=== PATIENT | female | born 1950 | race Caucasian/White ===

== ENCOUNTER → 2016-11-29 | Outpatient (REF) | payer MEDICARE, BC | LOC: M LAB REF 16:26 | PROVIDERS: ATTEND Physician Assistant | DX: R30.0 Dysuria (principal) ==

== ENCOUNTER → 2017-06-28 | Outpatient (REF) | payer MEDICARE, BC | LOC: M LAB REF 16:17 | PROVIDERS: ATTEND Physician Assistant | DX: R30.0 Dysuria (principal) ==

== ENCOUNTER → 2017-10-18 | Outpatient (CLI) | payer MEDICARE, BC ==
[2017-10-18 13:49] LABS: BASO % 0.8 % (0.0-1.0); EOS # 0.2 10^3/uL (0.0-0.50); EOS % 4.8 % (0.0-3.0); IMMATURE GRANULOCYTE % 0.3 % (0-0); LYMPH # 0.9 10^3/uL (1.5-4.5); LYMPH % 22.9 % (24.0-44.0); MEAN CORPUSCULAR HEMOGLOBIN 32.2 pg (27.0-33.0); MEAN CORPUSCULAR HGB CONC 32.4 g/dl (32.0-36.5); MEAN CORPUSCULAR VOLUME 99.2 fl (80.0-96.0); MONO # 0.3 10^3/uL (0.0-0.8); MONO % 8.5 % (0.0-5.0); NEUTROPHILS # 2.4 10^3/uL (1.8-7.7); NEUTROPHILS % 62.7 % (36.0-66.0); PLATELET COUNT, AUTOMATED 274 10^3/uL (150-450); RED CELL DISTRIBUTION WIDTH 12.4 % (11.5-14.5); WHITE BLOOD COUNT 3.8 10^3/uL (4.0-10.0)
[2017-10-18 14:56] LABS: ALBUMIN 3.9 GM/DL (3.2-5.2); ALKALINE PHOSPHATASE 60 U/L (45-117); ALT/SGPT 41 U/L (12-78); ANION GAP 7 MEQ/L (8-16); AST/SGOT 19 U/L (7-37); BILIRUBIN,TOTAL 0.3 MG/DL (0.2-1.0); BLOOD UREA NITROGEN 12 MG/DL (7-18); CALCIUM LEVEL 9.8 MG/DL (8.8-10.2); CARBON DIOXIDE LEVEL 33 MEQ/L (21-32); CHLORIDE LEVEL 101 MEQ/L (98-107); CREATININE FOR GFR 0.79 MG/DL (0.55-1.02); FREE T4 0.98 NG/DL (0.76-1.46); GLOMERULAR FILTRATION RATE > 60.0 (>45); GLUCOSE, FASTING 81 MG/DL (80-110); POTASSIUM SERUM 4.3 MEQ/L (3.5-5.1); SODIUM LEVEL 141 MEQ/L (136-145); TOTAL PROTEIN 6.9 GM/DL (6.4-8.2)
[2017-10-19 17:35] LABS: FOLATE 12.8 NG/ML; VITAMIN B12 LEVEL 363 PG/ML
== END ==
LOC: M SMT 10:55
PROVIDERS: ATTEND Family Medicine
DX: E55.9 Vitamin D deficiency, unspecified (principal); F33.1 Major depressive disorder, recurrent, moderate; G20 Parkinson's disease

== ENCOUNTER → 2018-02-12 | Outpatient (CLI) | payer MEDICARE, BC ==
[2018-02-12 18:17] LABS: BASO % 0.5 % (0.0-1.0); EOS # 0.1 10^3/uL (0.0-0.50); EOS % 2.6 % (0.0-3.0); HEMATOCRIT 39.7 % (36.0-47.0); HEMOGLOBIN 12.7 g/dl (12.0-16.0); IMMATURE GRANULOCYTE % 0.3 % (0-3.0); LYMPH # 0.7 10^3/uL (1.5-4.5); LYMPH % 18.4 % (24.0-44.0); MEAN CORPUSCULAR HEMOGLOBIN 32.2 pg (27.0-33.0); MEAN CORPUSCULAR VOLUME 100.5 fl (80.0-96.0); MONO # 0.3 10^3/uL (0.0-0.8); MONO % 8.4 % (0.0-5.0); NEUTROPHILS # 2.7 10^3/uL (1.8-7.7); NEUTROPHILS % 69.8 % (36.0-66.0); PLATELET COUNT, AUTOMATED 251 10^3/uL (150-450); RED BLOOD COUNT 3.95 10^6/uL (4.00-5.40); RED CELL DISTRIBUTION WIDTH 12.7 % (11.5-14.5); WHITE BLOOD COUNT 3.9 10^3/uL (4.0-10.0)
[2018-02-12 18:34] LABS: VITAMIN B12 LEVEL 1365 PG/ML (247-911)
== END ==
LOC: M SMT 10:26
DX: D51.9 Vitamin B12 deficiency anemia, unspecified (principal)
CPT/HCPCS: 82607

== ENCOUNTER → 2018-02-18 | Outpatient (REF) | payer MEDICARE, BC ==
[2018-02-18 10:55] LABS: APPEARANCE, URINE MANUAL CLEAR (CLEAR); COLOR, URINE MANUAL YELLOW (YELLOW); PROTEIN, URINE MANUAL NEGATIVE (NEGATIVE)
[2018-02-18 10:56] LABS: BACTERIA, URINE NONE SEEN; BILIRUBIN, URINE MANUAL NEGATIVE (NEGATIVE); BLOOD URINE MANUAL NEGATIVE (NEGATIVE); GLUCOSE, URINE (UA) MANUAL TRACE(50 MG/DL) mg/dL (NEGATIVE); KETONE, URINE MANUAL NEGATIVE (NEGATIVE); LEUKOCYTE ESTERASE, URINE MAN NEGATIVE (NEGATIVE); MICROSCOPIC INDICATED? MAN YES (NO); NITRITE, URINE MANUAL NEGATIVE (NEGATIVE); RBC, URINE NONE SEEN /hpf (0-3); SQUAMOUS EPITHELIAL CELL URINE SMALL AMOUNT /hpf (SMALL AMT); UROBILINOGEN, URINE MANUAL NORMAL (NORMAL); WBC, URINE 0-1 /hpf (0-3)
[2018-02-18 10:57] LABS: HYALINE CAST, URINE NONE SEEN /lpf (0-1); MICROSCOPIC EXAM PERFORMED
== END ==
LOC: M LAB REF 10:35
DX: R30.0 Dysuria (principal)
CPT/HCPCS: 81000

== ENCOUNTER → 2018-05-01 | Outpatient (REF) | payer MEDICARE, BC ==
[2018-05-01 14:24] LABS: APPEARANCE, URINE CLOUDY (CLEAR); BACTERIA, URINE AUTO 3+ (NEGATIVE); BILIRUBIN, URINE AUTO NEGATIVE (NEGATIVE); BLOOD, URINE BLOOD NEGATIVE (NEGATIVE); COLOR, URINE YELLOW (YELLOW); GLUCOSE, URINE (UA) AUTO NEGATIVE (NEGATIVE); KETONE, URINE AUTO NEGATIVE (NEGATIVE); LEUKOCYTE ESTERASE, URINE AUTO 2+ (NEGATIVE); MUCUS, URINE SMALL (NEGATIVE); NITRITE, URINE AUTO NEGATIVE (NEGATIVE); PROTEIN, URINE AUTO NEGATIVE (NEGATIVE); RBC, URINE AUTO 7 /HPF (0-3); SPECIFIC GRAVITY URINE AUTO 1.017 (1.002-1.035); SQUAMOUS EPITHELIAL CELL UR AU 4 /HPF (0-6); WBC, URINE AUTO 71 /HPF (0-3)
== END ==
LOC: M LAB REF 13:58
DX: R41.82 Altered mental status, unspecified (principal)
CPT/HCPCS: 81001

== ENCOUNTER → 2018-05-08 | Outpatient (CLI) | payer MEDICARE, BC | LOC: M SMT 11:06 | DX: K59.00 Constipation, unspecified (principal) | CPT/HCPCS: 74019 ==

== ENCOUNTER 2018-05-24 14:34 | Emergency (ER) | payer MEDICARE, BC ==
[2018-05-24] MEDS: NS 1,000 ML IV (16:50)
[2018-05-24 17:10] LABS: BASO % 0.7 % (0.0-1.0); EOS # 0.1 10^3/uL (0.0-0.50); EOS % 2.7 % (0.0-3.0); HEMATOCRIT 38.3 % (36.0-47.0); HEMOGLOBIN 12.4 g/dl (12.0-15.5); IMMATURE GRANULOCYTE % 0.5 % (0-3.0); LYMPH # 0.8 10^3/uL (1.5-4.5); LYMPH % 19.2 % (24.0-44.0); MEAN CORPUSCULAR HGB CONC 32.4 g/dl (32.0-36.5); MEAN CORPUSCULAR VOLUME 98.7 fl (80.0-96.0); MONO # 0.4 10^3/uL (0.0-0.8); NEUTROPHILS # 2.8 10^3/uL (1.8-7.7); NEUTROPHILS % 67.9 % (36.0-66.0); PLATELET COUNT, AUTOMATED 254 10^3/uL (150-450); RED BLOOD COUNT 3.88 10^6/uL (4.00-5.40); RED CELL DISTRIBUTION WIDTH 12.4 % (11.5-14.5); WHITE BLOOD COUNT 4.1 10^3/uL (4.0-10.0)
[2018-05-24 17:34] LABS: LACTIC ACID SEPSIS PROTOCOL 1.5 MMOL/L (0.4-2.0)
[2018-05-24 17:37] LABS: ALBUMIN 3.7 GM/DL (3.2-5.2); ALBUMIN/GLOBULIN RATIO 1.28 (1.00-1.93); ALKALINE PHOSPHATASE 65 U/L (45-117); ALT/SGPT 38 U/L (12-78); AMYLASE 240 U/L (25-115); ANION GAP 5 MEQ/L (8-16); AST/SGOT 22 U/L (7-37); BILIRUBIN,DIRECT < 0.1 MG/DL (0.0-0.2); BILIRUBIN,TOTAL 0.2 MG/DL (0.2-1.0); BLOOD UREA NITROGEN 14 MG/DL (7-18); CALCIUM LEVEL 9.2 MG/DL (8.8-10.2); CARBON DIOXIDE LEVEL 33 MEQ/L (21-32); CHLORIDE LEVEL 106 MEQ/L (98-107); CPK CREATINE PHOSPHOKINASE 76 U/L (26-192); CREATININE FOR GFR 0.85 MG/DL (0.55-1.30); GLOMERULAR FILTRATION RATE > 60.0 (>45); GLUCOSE, FASTING 97 MG/DL (70-100); LIPASE 1118 U/L (73-393); POTASSIUM SERUM 4.2 MEQ/L (3.5-5.1); SODIUM LEVEL 144 MEQ/L (136-145); TOTAL PROTEIN 6.6 GM/DL (6.4-8.2); TROPONIN I < 0.02 NG/ML (< 0.10)
[2018-05-24 17:43] LABS: CK-MB VALUE MASS 2.7 NG/ML (<3.6); MB/CK RELATIVE INDEX 3.55 (< OR =4)
[2018-05-24] MEDS ORDERED: ISOVUE-370 76% 100ML VIAL (Q9967) As Ordered (17:57)
[2018-05-24 20:02] LABS: KETONE, URINE AUTO RFX NEGATIVE (NEGATIVE); LEUKOCYTE ESTERASE UR AUTO RFX NEGATIVE (NEGATIVE); NITRITE, URINE AUTO RFX NEGATIVE (NEGATIVE); RBC, URINE AUTO RFX 1 /HPF (0-3); SQUAM EPITHELIAL CELL UR AURFX 1 /HPF (0-6); WBC, URINE AUTO RFX 1 /HPF (0-3)
[2018-05-24 20:12] LABS: SPECIFIC GRAVITY UR AUTO RFX >1.060 (1.002-1.035)
== END 2018-05-24 21:50 | disposition home or self-care (01) ==
LOC: M ED 14:34
DX: K59.00 Constipation, unspecified (principal); R74.8 Abnormal levels of other serum enzymes; R19.7 Diarrhea, unspecified; K62.89 Other specified diseases of anus and rectum; G20 Parkinson's disease; Z87.440 Personal history of urinary (tract) infections; Z79.899 Other long term (current) drug therapy
CPT/HCPCS: Q9967

== ENCOUNTER → 2018-08-27 | Outpatient (CLI) | payer MEDICARE, BC ==
[2018-08-27 12:48] LABS: BASO % 0.8 % (0.0-1.0); EOS # 0.2 10^3/uL (0.0-0.50); EOS % 4.3 % (0.0-3.0); HEMATOCRIT 38.9 % (36.0-47.0); HEMOGLOBIN 12.8 g/dl (12.0-15.5); IMMATURE GRANULOCYTE % 0.3 % (0-3.0); LYMPH # 0.9 10^3/uL (1.5-4.5); LYMPH % 23.9 % (24.0-44.0); MEAN CORPUSCULAR HEMOGLOBIN 32.7 pg (27.0-33.0); MEAN CORPUSCULAR HGB CONC 32.9 g/dl (32.0-36.5); MEAN CORPUSCULAR VOLUME 99.2 fl (80.0-96.0); MONO # 0.4 10^3/uL (0.0-0.8); MONO % 10.9 % (0.0-5.0); NEUTROPHILS # 2.3 10^3/uL (1.8-7.7); NEUTROPHILS % 59.8 % (36.0-66.0); PLATELET COUNT, AUTOMATED 241 10^3/uL (150-450); RED BLOOD COUNT 3.92 10^6/uL (4.00-5.40); RED CELL DISTRIBUTION WIDTH 12.7 % (11.5-14.5); WHITE BLOOD COUNT 3.8 10^3/uL (4.0-10.0)
[2018-08-27 13:28] LABS: ALBUMIN 3.5 GM/DL (3.2-5.2); ALBUMIN/GLOBULIN RATIO 1.09 (1.00-1.93); ALKALINE PHOSPHATASE 58 U/L (45-117); ALT/SGPT 72 U/L (12-78); ANION GAP 8 MEQ/L (8-16); AST/SGOT 35 U/L (7-37); BILIRUBIN,TOTAL 0.3 MG/DL (0.2-1.0); BLOOD UREA NITROGEN 17 MG/DL (7-18); CALCIUM LEVEL 9.3 MG/DL (8.8-10.2); CARBON DIOXIDE LEVEL 29 MEQ/L (21-32); CHLORIDE LEVEL 107 MEQ/L (98-107); CREATININE FOR GFR 0.78 MG/DL (0.55-1.30); FREE T4 0.97 NG/DL (0.76-1.46); GLOMERULAR FILTRATION RATE > 60.0 (>45); GLUCOSE, FASTING 59 MG/DL (70-100); POTASSIUM SERUM 4.4 MEQ/L (3.5-5.1); SODIUM LEVEL 144 MEQ/L (136-145); TOTAL PROTEIN 6.7 GM/DL (6.4-8.2)
== END ==
LOC: M LAB 11:56
DX: D51.9 Vitamin B12 deficiency anemia, unspecified (principal); Z79.899 Other long term (current) drug therapy
CPT/HCPCS: 84443

== ENCOUNTER → 2018-12-01 | Outpatient (CLI) | payer MEDICARE, BC ==
[~2018-12-01] MED LIST: ATRO1OPD; BUPR150T3; PARO40TA2; RIVA6CAP
[2018-12-01 10:49] LABS: APPEARANCE, URINE CLOUDY (CLEAR); BACTERIA, URINE AUTO 2+ (NEGATIVE); BILIRUBIN, URINE AUTO NEGATIVE (NEGATIVE); BLOOD, URINE BLOOD NEGATIVE (NEGATIVE); COLOR, URINE YELLOW (YELLOW); GLUCOSE, URINE (UA) AUTO 1+ mg/dL (NEGATIVE); KETONE, URINE AUTO NEGATIVE (NEGATIVE); LEUKOCYTE ESTERASE, URINE AUTO 3+ (NEGATIVE); NITRITE, URINE AUTO NEGATIVE (NEGATIVE); PROTEIN, URINE AUTO 1+ mg/dL (NEGATIVE); RBC, URINE AUTO 30 /HPF (0-3); SPECIFIC GRAVITY URINE AUTO 1.014 (1.002-1.035); SQUAMOUS EPITHELIAL CELL UR AU 5 /HPF (0-6); UROBILINOGEN, URINE AUTO 0.2 mg/dL (0.0-2.0); WBC, URINE AUTO TNTC /HPF (0-3)
== END ==
LOC: M LAB 10:17
PROVIDERS: ATTEND Family Medicine
DX: R30.0 Dysuria (principal)

== ENCOUNTER 2019-05-07 08:53 | Emergency (ER) | payer MEDICARE, BC ==
[~2019-05-07] VITALS: Ht 157.5 cm; Wt 52.3 kg
[2019-05-07] MEDS ORDERED: ACETAMINOPHEN 325 MG TAB PO ONE (09:30)
--- NOTE | 2019-05-07 10:14 | REP ---
MAXILLOFACIAL CT STUDY WITHOUT CONTRAST: HISTORY: Injury to the left eye. 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 There is diffuse cerebral atrophy. The maxillary sinuses are clear. There is a small mucous retention cyst in one of the posterior ethmoid air cells on the left. Ethmoid air cells are otherwise clear. There is minimal mucosal thickening in the sphenoid sinus. The frontal sinuses are hypoplastic. Mastoid aeration is normal. No intraorbital mass, hematoma or opaque foreign body is seen. The ocular globes appear intact. Orbital margins are intact. Bony nasal septum deviates slightly to the left without a significant beak. Nasal turbinate soft tissues are symmetric. IMPRESSION: Deep brain neural stimulator leads noted incidentally. Minimal mucosal paranasal sinus changes. No intraorbital abnormality or fracture seen. Electronically Signed by Santosh Coulter MD 05/07/2019 11:12 A
[2019-05-07] MEDS ORDERED: BACIOIN23 OS (10:29)
[2019-05-07] MEDS ORDERED: POLYSPORIN OPHTH OINT 3.5 GM OS ONE (10:30)
[2019-05-07 10:38] VITALS: BP 178/91
== END 2019-05-07 11:38 | disposition home or self-care (01) ==
LOC: M ED 08:53
DX: S01.80XA Unspecified open wound of other part of head, initial encounter (principal); S00.12XA Contusion of left eyelid and periocular area, initial encounter; S50.812A Abrasion of left forearm, initial encounter; W19.XXXA Unspecified fall, initial encounter; Y92.89 Other specified places as the place of occurrence of the external cause; G20 Parkinson's disease; Z79.899 Other long term (current) drug therapy

== ENCOUNTER → 2019-05-29 | Outpatient (REF) | payer MEDICARE, BC ==
[~2019-05-29] MED LIST changes: +BACIOIN23 OS
[2019-05-29 19:10] LABS: APPEARANCE, URINE CLEAR (CLEAR); BACTERIA, URINE AUTO 1+ (NEGATIVE); BILIRUBIN, URINE AUTO NEGATIVE (NEGATIVE); BLOOD, URINE BLOOD NEGATIVE (NEGATIVE); COLOR, URINE YELLOW (YELLOW); GLUCOSE, URINE (UA) AUTO NEGATIVE (NEGATIVE); KETONE, URINE AUTO NEGATIVE (NEGATIVE); LEUKOCYTE ESTERASE, URINE AUTO 3+ (NEGATIVE); MUCUS, URINE SMALL (NEGATIVE); NITRITE, URINE AUTO NEGATIVE (NEGATIVE); PROTEIN, URINE AUTO NEGATIVE (NEGATIVE); RBC, URINE AUTO 4 /HPF (0-3); SPECIFIC GRAVITY URINE AUTO 1.006 (1.002-1.035); SQUAMOUS EPITHELIAL CELL UR AU 0 /HPF (0-6); UROBILINOGEN, URINE AUTO 0.2 mg/dL (0.0-2.0); WBC, URINE AUTO 44 /HPF (0-3)
== END ==
LOC: M LAB REF 18:26
PROVIDERS: ATTEND Family Medicine
DX: R41.82 Altered mental status, unspecified (principal)

== ENCOUNTER → 2019-08-06 | Outpatient (REF) | payer MEDICARE, BC ==
[~2019-08-06] MED LIST changes: +NITR100C2
== END ==
LOC: M LAB REF 12:41
PROVIDERS: ATTEND Family Medicine
DX: N39.0 Urinary tract infection, site not specified (principal)

== ENCOUNTER 2019-08-10 07:29 | Emergency (ER) | payer MEDICARE, BC ==
[~2019-08-10] VITALS: Ht 157.5 cm; Wt 52.3 kg
[~2019-08-10 07:29] MED LIST changes: -ATRO1OPD; +ATRO1OPD SL; -BUPR150T3; +BUPR150T3 PO; -NITR100C2; -PARO40TA2; +PARO40TA2 PO
[2019-08-10] MEDS ORDERED: NITR100C2 (07:48)
[2019-08-10] MEDS ORDERED: NS 1,000 ML IV ONE (08:15)
[2019-08-10] MEDS ORDERED: LIDOCAINE 2% 5ML JELLY UROJET TOP ONE (08:15)
[2019-08-10] MEDS ORDERED: ONDANSETRON 4MG/2ML VIAL (J2405) IV ONE (08:30)
[2019-08-10 08:50] LABS: BASO % 0.6 % (0.0-1.0); EOS # 0.1 10^3/uL (0.0-0.5); EOS % 1.7 % (0.0-3.0); HEMATOCRIT 38.9 % (36.0-47.0); HEMOGLOBIN 12.6 g/dl (12.0-15.5); LYMPH # 0.6 10^3/uL (1.5-5.0); LYMPH % 12.1 % (24.0-44.0); MEAN CORPUSCULAR HEMOGLOBIN 32.4 pg (27.0-33.0); MEAN CORPUSCULAR HGB CONC 32.4 g/dl (32.0-36.5); MONO # 0.5 10^3/uL (0.0-0.8); NEUTROPHILS % 76.2 % (36.0-66.0); PLATELET COUNT, AUTOMATED 230 10^3/uL (150-450); RED BLOOD COUNT 3.89 10^6/uL (4.00-5.40); WHITE BLOOD COUNT 5.2 10^3/uL (4.0-10.0)
[2019-08-10 09:02] LABS: ALBUMIN 3.6 GM/DL (3.2-5.2); ALT/SGPT 24 U/L (12-78); BILIRUBIN,DIRECT < 0.1 MG/DL (0.0-0.2); BILIRUBIN,TOTAL 0.2 MG/DL (0.2-1.0); BLOOD UREA NITROGEN 15 MG/DL (7-18); C REACTIVE PROTEIN QUANTITATIV < 0.30 MG/DL (0.00-0.30); CALCIUM LEVEL 9.6 MG/DL (8.8-10.2); CARBON DIOXIDE LEVEL 32 MEQ/L (21-32); CHLORIDE LEVEL 108 MEQ/L (98-107); CREATININE FOR GFR 1.04 MG/DL (0.55-1.30); GLOMERULAR FILTRATION RATE 56.1 (>45); GLUCOSE, FASTING 88 MG/DL (70-100); POTASSIUM SERUM 4.4 MEQ/L (3.5-5.1); SODIUM LEVEL 144 MEQ/L (136-145); TOTAL PROTEIN 6.4 GM/DL (6.4-8.2)
[2019-08-10 09:17] LABS: APPEARANCE, URINE CLEAR (CLEAR); BACTERIA, URINE AUTO NEGATIVE (NEGATIVE); BILIRUBIN, URINE AUTO NEGATIVE (NEGATIVE); BLOOD, URINE BLOOD NEGATIVE (NEGATIVE); COLOR, URINE YELLOW (YELLOW); GLUCOSE, URINE (UA) AUTO NEGATIVE (NEGATIVE); KETONE, URINE AUTO NEGATIVE (NEGATIVE); LEUKOCYTE ESTERASE, URINE AUTO NEGATIVE (NEGATIVE); MUCUS, URINE SMALL (NEGATIVE); NITRITE, URINE AUTO NEGATIVE (NEGATIVE); PROTEIN, URINE AUTO NEGATIVE (NEGATIVE); RBC, URINE AUTO 0 /HPF (0-3); SPECIFIC GRAVITY URINE AUTO 1.021 (1.002-1.035); SQUAMOUS EPITHELIAL CELL UR AU 0 /HPF (0-6); UROBILINOGEN, URINE AUTO 0.2 mg/dL (0.0-2.0); WBC, URINE AUTO 0 /HPF (0-3)
[2019-08-10 10:22] VITALS: BP 134/69
== END 2019-08-10 10:25 | disposition home or self-care (01) ==
LOC: M ED 07:29
DX: G21.19 Other drug induced secondary parkinsonism (principal); R53.1 Weakness; R11.0 Nausea; R53.83 Other fatigue; R47.9 Unspecified speech disturbances; T37.8X5A Adverse effect of other specified systemic anti-infectives and antiparasitics, initial encounter; Z87.440 Personal history of urinary (tract) infections; F32.9 Major depressive disorder, single episode, unspecified; Z79.899 Other long term (current) drug therapy
CPT/HCPCS: 36415; 80048; 80076; 81001; 83605; 85025; 86140; 87040; 87086; 96374; 99284; J2405; P9612

== ENCOUNTER 2019-08-24 19:10 | Inpatient (IN) | payer MEDICARE, BC ==
[~2019-08-24] VITALS: Ht 157.5 cm; Wt 52.5 kg
[~2019-08-24 19:10] MED LIST changes: +NITR100C2
[2019-08-24] MEDS ORDERED: SERO1TAB3 PO (19:24)
[2019-08-24] MEDS ORDERED: NS 1,000 ML IV ONE (20:00)
[2019-08-24 20:03] LABS: BASO % 0.5 % (0.0-1.0); EOS # 0.2 10^3/uL (0.0-0.5); EOS % 4.1 % (0.0-3.0); HEMATOCRIT 39.1 % (36.0-47.0); HEMOGLOBIN 12.7 g/dl (12.0-15.5); LYMPH # 1.2 10^3/uL (1.5-5.0); LYMPH % 30.5 % (24.0-44.0); MEAN CORPUSCULAR HEMOGLOBIN 32.5 pg (27.0-33.0); MEAN CORPUSCULAR HGB CONC 32.5 g/dl (32.0-36.5); MONO # 0.4 10^3/uL (0.0-0.8); MONO % 9.8 % (0.0-5.0); NEUTROPHILS # 2.1 10^3/uL (1.5-8.5); NEUTROPHILS % 54.8 % (36.0-66.0); PLATELET COUNT, AUTOMATED 219 10^3/uL (150-450); RED BLOOD COUNT 3.91 10^6/uL (4.00-5.40); WHITE BLOOD COUNT 3.9 10^3/uL (4.0-10.0)
[2019-08-24 20:35] LABS: ALBUMIN 3.6 GM/DL (3.2-5.2); ALT/SGPT 21 U/L (12-78); BILIRUBIN,DIRECT < 0.1 MG/DL (0.0-0.2); BILIRUBIN,TOTAL 0.3 MG/DL (0.2-1.0); BLOOD UREA NITROGEN 10 MG/DL (7-18); CALCIUM LEVEL 9.3 MG/DL (8.8-10.2); CARBON DIOXIDE LEVEL 33 MEQ/L (21-32); CHLORIDE LEVEL 104 MEQ/L (98-107); CK-MB VALUE MASS < 1.0 NG/ML (<3.6); CPK CREATINE PHOSPHOKINASE 73 U/L (26-192); GLOMERULAR FILTRATION RATE > 60.0 (>45); GLUCOSE, FASTING 76 MG/DL (70-100); MB/CK RELATIVE INDEX 1.37 (< OR =4); POTASSIUM SERUM 3.9 MEQ/L (3.5-5.1); SODIUM LEVEL 143 MEQ/L (136-145); TOTAL PROTEIN 6.4 GM/DL (6.4-8.2); TROPONIN I < 0.02 NG/ML (< 0.10)
[2019-08-24] MEDS: buPROPion **XL** TABLET 150MG (WELLBUTRIN XL) PO SCH (21:00)
[2019-08-24] MEDS ORDERED: cefTRIAXone SOD 1 GM in D5W MINI-BAG PLUS 50 ML IV ONE (21:15)
--- NOTE | 2019-08-24 21:25 | HPEPDOC ---
[facility] Medical History & Physical Date of Admission Aug 24, 2019 Date of Service: Aug 24, 2019 Primary Care Physician: BRADEN CASTELLANOS DO Attending Physician: ELISEO SHELLEY MD History and Physical TIME OF SERVICE: 935 PM CHIEF COMPLAINT: Confusion HISTORY OF PRESENT ILLNESS: The history is obtained from the ED attending. The patient has dementia and was unable to contribute to the history. This is a 69 year old female who was brought to the ED by her because she been confused and hallucinating for 3 days. The patient previously had a UTI and according to her her symptoms are similar to the last time she had a UTI. Associated symptoms include poor appetite, and foul-smelling urine. The patient's declined CT of the head and chest x-ray because he felt that the symptoms were explained by the UTI therefore she didn't require additional testing. Currently the patient denies having any pain or any acute complaints. REVIEW OF SYSTEMS: Unable to obtain because patient has dementia PAST MEDICAL/ SURGICAL HISTORY: Per chart review. Parkinson's with dementia. Placement of a neurostimulator. History of UTI SOCIAL HISTORY: Nonsmoker FAMILY HISTORY: Unable to obtain because patient has dementia ALLERGIES: Please see below. HOME MEDICATIONS: Please see below. PHYSICAL EXAMINATION: VITAL SIGNS: Please see below. GENERAL APPEARANCE: Slim build, well-developed, not in apparent distress HEENT: Normocephalic, atraumatic. Mucous membranes slightly dry CARDIOVASCULAR: Regular rate and rhythm. No murmurs, rubs or gallops LUNGS: Clear auscultation bilaterally on room air ABDOMEN: No grimacing with palpation of abdomen INTEGUMENT: Not flushed and not diaphoretic PSYCHIATRIC: Alert and oriented to person, aware that we're [employer]. Following commands inconsistently LABORATORY DATA: See below. ASSESSMENT: Ms Holland is a 63 old female with a past medical history of Parkinson's with dementia who is admitted for management of a UTI. PLAN: 1. Altered mental status, possibly secondary to UTI. UA reviewed. WBC CBC count 3.9. There are no bands & neutrophils count is not elevated Plan: Admit to GMF/continue ceftriaxone/IV fluids/ f/u UCx / frequent neuro checks 2. Parkinson's. Plan: Continue home meds/ fall precautions DVT prophylaxis with SCDs. Disposition pending clinical course Vital Signs Vital Signs Date Time Temp Pulse Resp B/P (MAP) Pulse Ox O2 Delivery O2 Flow Rate FiO2 08/24/19 20:40 66 84 08/24/19 20:30 143/65 (91) 08/24/19 19:11 98.2 18 Room Air Laboratory Data Labs 24H Laboratory Tests 2 08/24/19 19:55: Immature Granulocyte % (Auto) 0.3, White Blood Count 3.9L, Red Blood Count 3.91L, Hemoglobin 12.7, Hematocrit 39.1, Mean Corpuscular Volume 100.0H, Mean Corpuscular Hemoglobin 32.5, Mean Corpuscular Hemoglobin Concent 32.5, Red Cell Distribution Width 12.6, Platelet Count 219, Neutrophils (%) (Auto) 54.8, Lymphocytes (%) (Auto) 30.5, Monocytes (%) (Auto) 9.8H, Eosinophils (%) (Auto) 4.1H, Basophils (%) (Auto) 0.5, Neutrophils # (Auto) 2.1, Lymphocytes # (Auto) 1.2L, Monocytes # (Auto) 0.4, Eosinophils # (Auto) 0.2, Basophils # (Auto) 0.0, Nucleated Red Blood Cells % (auto) 0.0, Urine Color YELLOW, Urine Appearance CLOUDYH, Urine pH 7.0, Urine Specific [place] 1.004, Urine Protein NEGATIVE, Urine Glucose (UA) NEGATIVE, Urine Ketones NEGATIVE, Urine Blood 1+H, Urine Nitrite POSITIVEH, Urine Bilirubin NEGATIVE, Urine Urobilinogen 0.2, Urine Leukocyte Esterase 3+H, Urine WBC (Auto) TNTCH, Urine RBC (Auto) 14H, Urine Hyaline Casts (Auto) 0, Urine Bacteria (Auto) 1+H, Urine Squamous Epithelial Cells 0, Urine Transitional Epithelial Cells 2, Urine Amorphous Sediment SMALLH, Urine Sperm (Auto) , Anion Gap 6L, Glomerular Filtration Rate > 60.0, Calcium Level 9.3, Aspartate Amino Transf (AST/SGOT) 14, Alanine Aminotransferase (ALT/SGPT) 21, Alkaline Phosphatase 63, Total Bilirubin 0.3, Direct Bilirubin < 0.1, Total Creatine Kinase 73, Creatine Kinase MB < 1.0, Creatine Kinase MB Relative Index 1.37, Troponin I < 0.02, Total Protein 6.4, Albumin 3.6, Albumin/ Globulin Ratio 1.29, Thyroid Stimulating Hormone (TSH) 4.370H CBC/BMP Laboratory Tests 08/24/19 19:55 Red Blood Count 3.91 L, Mean Corpuscular Volume 100.0 H, Mean Corpuscular He moglobin 32.5, Mean Corpuscular Hemoglobin Concent 32.5, Red Cell Distribution Width 12.6, Neutrophils (%) (Auto) 54.8, Lymphocytes (%) (Auto) 30.5, Monocytes (%) (Auto) 9.8 H, Eosinophils (%) (Auto) 4.1 H, Basophils (%) (Auto) 0.5, Neutrophils # (Auto) 2.1, Lymphocytes # (Auto) 1.2 L, Monocytes # (Auto) 0.4, Eosinophils # (Auto) 0.2, Basophils # (Auto) 0.0 Microbiology Microbiology 08/24/19 Urine Culture, Received Pending 08/24/19 Blood Culture, Received Pending Home Medications Scheduled Bupropion Hcl (Bupropion Xl) 150 Mg Tab, 150 MG PO BID Paroxetine HCl (Paroxetine HCl) 40 Mg Tab, 40 MG PO DAILY Scheduled PRN Atropine Sulfate (Atropine Sulfate) 1 % Ashley, 1-2 DROP SL TID PRN for CONGESTION Quetiapine Fumarate (Seroquel) 25 Mg Tablet, 25 MG PO QPM PRN for MOOD Allergies Coded Allergies: No Known Allergies (Unverified , 05/07/19) A-FIB/CHADSVASC A-FIB History Current/History of A-Fib/PAF?: No Current PO Anticoag Therapy: No ELISEO SHELLEY MD Aug 24, 2019 21:25
[2019-08-24] MEDS ORDERED: QUEtiapine FUMARATE 25 MG TAB PO PRN (22:00)
[2019-08-24] MEDS ORDERED: ATROPINE SULFATE 1% OP SOLN 2 ML BTL SL PRN (22:00)
[2019-08-24] MEDS: NS 1,000 ML IV SCH (22:29)
[2019-08-24 23:35] VITALS: BP 135/78
[2019-08-25] MEDS ORDERED: NS 500 ML IV SCH (04:00)
[2019-08-25 06:00] VITALS: BP 130/79
[2019-08-25 06:11] LABS: HEMATOCRIT 35.9 % (36.0-47.0); HEMOGLOBIN 11.6 g/dl (12.0-15.5); MEAN CORPUSCULAR HEMOGLOBIN 31.9 pg (27.0-33.0); MEAN CORPUSCULAR HGB CONC 32.3 g/dl (32.0-36.5); MEAN CORPUSCULAR VOLUME 98.6 fl (80.0-96.0); PLATELET COUNT, AUTOMATED 210 10^3/uL (150-450); RED BLOOD COUNT 3.64 10^6/uL (4.00-5.40); WHITE BLOOD COUNT 4.4 10^3/uL (4.0-10.0)
[2019-08-25 06:33] LABS: BLOOD UREA NITROGEN 9 MG/DL (7-18); CARBON DIOXIDE LEVEL 29 MEQ/L (21-32); CHLORIDE LEVEL 110 MEQ/L (98-107); CREATININE FOR GFR 0.91 MG/DL (0.55-1.30); GLOMERULAR FILTRATION RATE > 60.0 (>45); GLUCOSE, FASTING 81 MG/DL (70-100); POTASSIUM SERUM 3.7 MEQ/L (3.5-5.1); SODIUM LEVEL 144 MEQ/L (136-145)
[2019-08-25] MEDS ORDERED: POTASSIUM CHLORIDE 10 MEQ SR TABLET PO ONE (08:00)
--- NOTE | 2019-08-25 08:27 | IPNPDOC ---
Date Seen The patient was seen on 08/25/19. Progress Note SUBJECTIVE: Patient is a 69-year-old female with a past medical history s ignificant for Parkinson's with dementia who presented to the emergency department last evening with a chief complaint of altered mental status. Per , who is her primary caregiver reported 3 days of increasing confusion and hallucinations. also noted poor appetite and foul-smelling urine. No significant events reported overnight. Nursing staff does report the patient will occasionally talk to herself or experience intermittent visual hallucinations. This remains a change from her baseline mental status per her . She is alert and oriented to person and place and is able to answer yes or no questions without difficulty. She has had a single void. She denies any pain or discomfort. No chest pain or difficulty breathing. Repeat laboratory evaluation this morning continued indicate the patient does not have an elevated white count. BUN/creatinine within normal limits. Patient remains afebrile. OBJECTIVE: PHYSICAL EXAMINATION: VITAL SIGNS: Please see below. GENERAL: Patient was interviewed and examined in her hospital room. She is awake and alert able to answer yes or no questions. She remains a poor historian. She is quite thin. She is in no acute distress. HEENT: Normocephalic, atraumatic, EOMI, sclera nonicteric, mucous membranes are moist CARDIOVASCULAR: Regular rate and rhythm RESPIRATORY: Clear to auscultation bilaterally, no wheezes rales or rhonchi appreciated. ABDOMINAL: Soft, nontender, nondistended. No overlying bruising or erythema noted. No suprapubic tenderness. No grimacing during examination EXTREMITIES: Patient is able to move all extremities equally and bilaterally. Patient has not demonstrated any lower extremity edema or swelling. 2+ radial and posterior tibial pulses bilaterally. She doesn't have any calf tenderness. NEUROLOGICAL: Patient is alert and oriented to person and place. 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 No facial droop. LABORATORY DATA Please see below IMAGING STUDIES Patient's and healthcare proxy is declining all imaging studies including head CT and chest x-ray. MICROBIOLOGY: Urine culture (08/24/19): Pending Blood culture (08/24/19): Pending ASSESSMENT AND PLAN: Patient is a 69-year-old female past medical history significant for Parkinsonian dementia who presents to the emergency department the evening of 08/24/19 with a chief complaint of 3 day history of increasing confusion and altered mental status in the setting of poor appetite and foul-smelling urine. Patient did receive a 1 g of ceftriaxone in the emergency department. Patient's healthcare proxy and 's declining imaging to rule out intracranial causes of altered mental status. PROBLEMS: #Altered mental status, consider acute on chronic encephalopathy secondary to urinary tract infection Patient has a history of urinary tract infections with subsequent altered mental status. states that this resolved itself with antibiotic treatment , who is the patient's healthcare proxy, is declining all imaging studies including head CT and chest x-ray. Patient remains afebrile and without an elevated white count. Continue frequent neuro checks. Monitor mental status for return to baseline. #Urinary tract infection UA reviewed. Positive for both white cells and nitrates. Patient did receive a single dose of ceftriaxone while emergency department prior to presenting to the floor. Status post ceftriaxone 1 g administered in the emergency department. Patient will be continued on 1 g of ceftriaxone daily Culture remains pending, and to alter antibiotic therapy per sensitivities #Parkinsonian dementia Continue patient on her home medications Bed rest with fall precautions DISPOSITION: Pending clinical improvement and improvement in mental status. DVT prophylaxis: TEDs and sequentials VS, I&O, 24H, Fishbone Vital Signs/I&O Vital Signs Date Time Temp Pulse Resp B/P (MAP) Pulse Ox O2 Delivery O2 Flow Rate FiO2 08/25/19 06:00 97.9 73 16 130/79 (96) 95 08/24/19 19:11 Room Air I&O- Last 24 Hours up to 6 AM 08/25/19 06:00 Intake Total 1050 ml Balance 1050 ml Laboratory Data 24H LABS Laboratory Tests 2 08/24/19 19:55: Immature Granulocyte % (Auto) 0.3, White Blood Count 3.9L, Red Blood Count 3.91L, Hemoglobin 12.7, Hematocrit 39.1, Mean Corpuscular Volume 100.0H, Mean Corpuscular Hemoglobin 32.5, Mean Corpuscular Hemoglobin Concent 32.5, Red Cell Distribution Width 12.6, Platelet Count 219, Neutrophils (%) (Auto) 54.8, Lymphocytes (%) (Auto) 30.5, Monocytes (%) (Auto) 9.8H, Eosinophils (%) (Auto) 4.1H, Basophils (%) (Auto) 0.5, Neutrophils # (Auto) 2.1, Lymphocytes # (Auto) 1.2L, Monocytes # (Auto) 0.4, Eosinophils # (Auto) 0.2, Basophils # (Auto) 0.0, Nucleated Red Blood Cells % (auto) 0.0, Urine Color YELLOW, Urine Appearance CLOUDYH, Urine pH 7.0, Urine Specific [place] 1.004, Urine Protein NEGATIVE, U rine Glucose (UA) NEGATIVE, Urine Ketones NEGATIVE, Urine Blood 1+H, Urine Nitrite POSITIVEH, Urine Bilirubin NEGATIVE, Urine Urobilinogen 0.2, Urine Leukocyte Esterase 3+H, Urine WBC (Auto) TNTCH, Urine RBC (Auto) 14H, Urine Hyaline Casts (Auto) 0, Urine Bacteria (Auto) 1+H, Urine Squamous Epithelial Cells 0, Urine Transitional Epithelial Cells 2, Urine Amorphous Sediment SMALLH, Urine Sperm (Auto) , Anion Gap 6L, Glomerular Filtration Rate > 60.0, Calcium Level 9.3, Aspartate Amino Transf (AST/SGOT) 14, Alanine Aminotransferase (ALT/SGPT) 21, Alkaline Phosphatase 63, Total Bilirubin 0.3, Direct Bilirubin < 0.1, Total Creatine Kinase 73, Creatine Kinase MB < 1.0, Creatine Kinase MB Relative Index 1.37, Troponin I < 0.02, Total Protein 6.4, Albumin 3.6, Albumin/Globulin Ratio 1.29, Thyroid Stimulating Hormone (TSH) 4.370H 08/25/19 05:52: Nucleated Red Blood Cells % (auto) 0.0, Anion Gap 5L, Glomerular Filtration Rate > 60.0, Calcium Level 9.0, Blood Urea Nitrogen 9, Creatinine 0.91, Sodium Level 144, Potassium Level 3.7, Chloride Level 110H, Carbon Dioxide Level 29 CBC/BMP Laboratory Tests 08/24/19 19:55 Red Blood Count 3.91 L, Mean Corpuscular Volume 100.0 H, Mean Corpuscular Hemoglobin 32.5, Mean Corpuscular Hemoglobin Concent 32.5, Red Cell Distribution Width 12.6, Neutrophils (%) (Auto) 54.8, Lymphocytes (%) (Auto) 30.5, Monocytes (%) (Auto) 9.8 H, Eosinophils (%) (Auto) 4.1 H, Basophils (%) (Auto) 0.5, Neutrophils # (Auto) 2.1, Lymphocytes # (Auto) 1.2 L, Monocytes # (Auto) 0.4, Eosinophils # (Auto) 0.2, Basophils # (Auto) 0.0 08/25/19 05:52 Red Blood Count 3.64 L, Mean Corpuscular Volume 98.6 H, Mean Corpuscular Hemoglobin 31.9, Mean Corpuscular Hemoglobin Concent 32.3, Red Cell Distribution Width 12.2, Calcium Level 9.0 Microbiology Microbiology 08/24/19 Blood Culture, Received Pending 08/24/19 Urine Culture, Received Pending 08/24/19 Blood Culture, Received Pending GME ATTESTATION GME ATTESTATION My faculty preceptor for this patient encounter was physically present during the encounter and was fully available. All aspects of the patient interview, examination, medical decision making process, and medical care plan development were reviewed and approved by the faculty preceptor. The faculty preceptor is aware and concurs with the plan as stated in the body of this note and will a ttest to such by his/her cosignature. EFFIE JOE DO Aug 25, 2019 08:27
[2019-08-25] MEDS ORDERED: cefTRIAXone SOD 1 GM in D5W MINI-BAG PLUS 50 ML IV SCH (09:00)
[2019-08-25] MEDS: PARoxetine 20 MG TAB PO SCH (09:01)
[2019-08-25] MEDS: buPROPion **XL** TABLET 150MG (WELLBUTRIN XL) PO SCH ×2 (09:02→20:16)
[2019-08-25] MEDS ORDERED: QUEtiapine FUMARATE 25 MG TAB PO ONE (10:15)
[2019-08-25 14:00] VITALS: BP 132/78
[2019-08-25] MEDS ORDERED: QUEtiapine FUMARATE 50 MG TAB PO ONE (15:45)
[2019-08-25 22:00] VITALS: BP 123/80
--- NOTE | 2019-08-26 00:28 | ECGEPIP ---
[facility] - ED Test Date: 2019-08-24 Pat Name: ALLI GEIGER Department: Room: - Gender: Female Assistant [employer]: marcus : 1950 Requested By: LAYLA Preston Order Number: [id number] Reading MD: Christiano Medel Measurements Intervals [place] Rate: 66 P: 32 [place]: 135 QRS: 60 QRSD: 94 T: 40 QT: 371 QTc: 391 Interpretive Statements SINUS RHYTHM Nonspecific ST-T wave abnormalities Significant artifact Electronically Signed on 08-26-2019 0:27:59 EDT by Christiano Medel
[2019-08-26] MEDS: NS 1,000 ML IV SCH (00:54)
[2019-08-26 06:00] VITALS: BP 133/69
[2019-08-26 06:06] LABS: HEMATOCRIT 34.3 % (36.0-47.0); HEMOGLOBIN 11.5 g/dl (12.0-15.5); MEAN CORPUSCULAR HEMOGLOBIN 33.2 pg (27.0-33.0); MEAN CORPUSCULAR HGB CONC 33.5 g/dl (32.0-36.5); MEAN CORPUSCULAR VOLUME 99.1 fl (80.0-96.0); PLATELET COUNT, AUTOMATED 188 10^3/uL (150-450); RED BLOOD COUNT 3.46 10^6/uL (4.00-5.40); WHITE BLOOD COUNT 3.2 10^3/uL (4.0-10.0)
[2019-08-26 06:27] LABS: BLOOD UREA NITROGEN 10 MG/DL (7-18); CALCIUM LEVEL 9.3 MG/DL (8.8-10.2); CARBON DIOXIDE LEVEL 28 MEQ/L (21-32); CHLORIDE LEVEL 108 MEQ/L (98-107); CREATININE FOR GFR 0.84 MG/DL (0.55-1.30); GLOMERULAR FILTRATION RATE > 60.0 (>45); GLUCOSE, FASTING 82 MG/DL (70-100); POTASSIUM SERUM 3.9 MEQ/L (3.5-5.1); SODIUM LEVEL 142 MEQ/L (136-145)
[2019-08-26] MEDS ORDERED: cefTRIAXone SOD 1 GM in D5W MINI-BAG PLUS 50 ML IV SCH (09:00)
[2019-08-26] MEDS ORDERED: QUEtiapine FUMARATE 25 MG TAB PO SCH (09:00)
[2019-08-26] MEDS ORDERED: CEFU1TAB20 PO (09:15)
[2019-08-26] MEDS: buPROPion **XL** TABLET 150MG (WELLBUTRIN XL) PO SCH (09:26)
[2019-08-26] MEDS: PARoxetine 20 MG TAB PO SCH (09:26)
--- NOTE | 2019-08-26 09:37 | DS.PDOC ---
Discharge Summary General Date of Admission Aug 24, 2019 at 21:21 Date of Discharge 08/26/19 Primary Care Physician: BRADEN CASTELLANOS DO Attending Physician: CLARISA ARTEAGA MD Discharge Summary PROCEDURES PERFORMED DURING STAY: None ADMITTING DIAGNOSES / DISCHARGE DIAGNOSES: Acute metabolic encephalopathy - likely 2/2 UTI 2/2 E. Coli Urinary tract infection 2/2 E. Coli Parkinson's dementia COMPLICATIONS/CHIEF COMPLAINT: Altered mental status HISTORY OF PRESENT ILLNESS: Patient is a 69-year-old female past medical history significant for parkinsonian dementia, who presented to the emergency department on 08/24/19 with a 3 day history of increasing confusion and altered mental status. Patient's reported that the patient briefly had a urinary tract infection with a similar change in mental status which improved following appropriate antibiotic therapy. was also reporting poor appetite and foul-smelling urine. Patient's , who is her healthcare proxy, was declining all imaging studies including CT of the head and chest x-ray stating that her symptoms were previously observed for a UTI and she did not require additional testing. They have verbalized understanding or risks / benefits. Patient denied any other acute complaints. Laboratory evaluation did not demonstrate any leukocytosis, acute kidney injury. Patient remained afebrile with normal vitals. Urine was found to be positive for nitrates and leukocyte esterase. Patient was admitted to the hospital for further observation and management of her urinary tract infection. HOSPITAL COURSE: Upon admission, patient received a single dose of 1 g of ceftriaxone for her urinary tract infection. This antibiotic was continued throughout her 2 day stay. Patient did report visual hallucinations. When necessary Seroquel was used to good effect. Throughout her hospitalization, patient remained afebrile, no leukocytosis, vitals stable. The day of discharge, patient denied any acute complaints, her altered mental status and seemingly resolved. Urine culture was found to be positive for Escherichia coli. Patient will be continued on oral Cefuroxime for 7 days as an outpatient based on culture sensitivities. A 1 time dose of the medication was given prior to discharge. Discharge plan was discussed with the patient and her who are both in agreement. Follow-up with patient's primary care provider recommended in 5-7 days. DISCHARGE MEDICATIONS: Please see below. ALLERGIES: Please see below. PHYSICAL EXAMINATION ON DISCHARGE: VITAL SIGNS: Please see below. GENERAL: Patient is interviewed and examined in her hospital room. Patient was found resting comfortably in bed with her at bedside. She was alert and oriented and in no acute distress. Patient was able to answer yes/no questions without difficulty. HEENT: Normocephalic, atraumatic, EOMI, sclera nonicteric, good oral hygiene, mucous membranes moist NECK: Trachea midline and neck is supple no JVD. CARDIOVASCULAR EXAMINATION: Regular rate and rhythm, normal S1 and S2 without a ny murmurs. RESPIRATORY EXAMINATION: Clear to auscultation bilaterally both anterior and posterior lung araiza. No wheezes rales or rhonchi ABDOMINAL EXAMINATION: Soft, nontender, nondistended, no guarding. No organomegaly palpated. EXTREMITIES: No lower extremity edema or swelling noted. No calf tenderness bilaterally. Posterior tibial pulses 2+ SKIN: No obvious bruising or rashes noted NEUROLOGICAL EXAMINATION: Patient is alert and oriented to person and place. 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 Minimal akathisia or dystonic movements. PSYCHIATRIC EXAMINATION: Mood and affect are appropriate given patient's current medical condition LABORATORY DATA: Please see below. IMAGING: Imaging studies were declined by patient's and healthcare proxy. PROGNOSIS: Fair ACTIVITY: As tolerated DIET: As tolerated DISCHARGE PLAN: Discharge home with self-care DISCHARGE INSTRUCTIONS: He received a one-time dose of Ceftin 250 mg prior to leaving the hospital. Please continue to take Ceftin 250 mg twice daily for 7 days. Please follow-up with your primary care provider in 5-7 days. Please return to the ER should her symptoms worsen or fail to improve with antibiotic therapy. To give for allowing us to participate in her care. DISCHARGE CONDITION: Stable, improved TIME SPENT ON DISCHARGE: 35 minutes. Vital Signs/I&Os Vital Signs Date Time Temp Pulse Resp B/P (MAP) Pulse Ox O2 Delivery O2 Flow Rate FiO2 08/26/19 06:00 98.2 75 16 133/69 (90) 98 08/24/19 19:11 Room Air l I&O- Last 24 Hours up to 6 AM 08/26/19 06:00 Intake Total 1510 ml Balance 1510 ml Laboratory Data Labs 24H Laboratory Tests 2 08/26/19 05:48: Nucleated Red Blood Cells % (auto) 0.0, Anion Gap 6L, Glomerular Filtration Rate > 60.0, Blood Urea Nitrogen 10, Creatinine 0.84, Sodium Level 142, Potassium Level 3.9, Chloride Level 108H, Carbon Dioxide Level 28, Calcium Level 9.3 CBC/BMP Laboratory Tests 08/26/19 05:48 Red Blood Count 3.46 L, Mean Corpuscular Volume 99.1 H, Mean Corpuscular Hemoglobin 33.2 H, Mean Corpuscular Hemoglobin Concent 33.5, Red Cell Distribution Width 12.5, Calcium Level 9.3 Microbiology Microbiology 08/24/19 Blood Culture - Preliminary, Resulted No growth after 24 hours . All specim... 08/24/19 Urine Culture - Final, Complete Escherichia Coli 08/24/19 Blood Culture - Preliminary, Resulted No growth after 24 hours . All specim... Discharge Medications Scheduled Bupropion Hcl (Bupropion Xl) 150 Mg Tab, 150 MG PO BID, (Reported) Cefuroxime Axetil (Cefuroxime) 250 Mg Tablet, 250 MG PO BID Paroxetine HCl (Paroxetine HCl) 40 Mg Tab, 40 MG PO DAILY, (Reported) Scheduled PRN Atropine Sulfate (Atropine Sulfate) 1 % Ashley, 1-2 DROP SL TID PRN for CONGESTION, (Reported) Quetiapine Fumarate (Seroquel) 25 Mg Tablet, 25 MG PO QPM PRN for MOOD, (Reported) Allergies Coded Allergies: No Known Allergies (Unverified , 05/07/19) GME ATTESTATION GME ATTESTATION My faculty preceptor for this patient encounter was physically present during the encounter and was fully available. All aspects of the patient interview, examination, medical decision making process, and medical care plan development were reviewed and approved by the faculty preceptor. The faculty preceptor is aware and concurs with the plan as stated in the body of this note and will attest to such by his/her cosignature. ATTENDING NOTE I, Clarisa Arteaga, have independently examined this patient and performed my own physical exam, as well as reviewed the documentation and edited where necessary. I have discussed in detail with the resident / student the findings and plan of treatment as documented by the resident / student and edited their note. I agree with their findings and treatment plan and have edited their documentation. I w ill continue to follow the patient during this hospital stay. Time spent on discharge: - 35 minutes EFFIE JOE DO Aug 26, 2019 09:37 CLARISA ARTEAGA MD Aug 26, 2019 10:22
[2019-08-26] MEDS ORDERED: CEFUROXIME 250 MG TAB PO ONE (11:00)
== END 2019-08-26 10:42 | disposition home or self-care (01) | DRG 689 ==
LOC: M ED 19:10 → M ED INP 21:21 → M MSPAV 23:31
PROVIDERS: ADMIT Internal Medicine; ATTEND Internal Medicine
DX: N39.0 Urinary tract infection, site not specified (principal); G93.41 Metabolic encephalopathy; F02.80 Dementia in other diseases classified elsewhere, unspecified severity, without behavioral disturbance, psychotic disturbance, mood disturbance, and anxiety; G31.83 Neurocognitive disorder with Lewy bodies; Z79.899 Other long term (current) drug therapy; B96.20 Unspecified Escherichia coli [E. coli] as the cause of diseases classified elsewhere

== ENCOUNTER 2019-10-18 16:16 | Emergency (ER) | payer MEDICARE, BC ==
[~2019-10-18] VITALS: Ht 157.5 cm; Wt 45.5 kg
[~2019-10-18 16:16] MED LIST changes: +CEFU1TAB20 PO; +SERO1TAB3 PO
[2019-10-18] MEDS ORDERED: NITR100C2 PO (16:37)
[2019-10-18 17:49] LABS: HEMATOCRIT 41.1 % (36.0-47.0); HEMOGLOBIN 12.9 g/dl (12.0-15.5); MEAN CORPUSCULAR HEMOGLOBIN 31.6 pg (27.0-33.0); MEAN CORPUSCULAR HGB CONC 31.4 g/dl (32.0-36.5); MEAN CORPUSCULAR VOLUME 100.7 fl (80.0-96.0); PLATELET COUNT, AUTOMATED 247 10^3/uL (150-450); RED BLOOD COUNT 4.08 10^6/uL (4.00-5.40); WHITE BLOOD COUNT 3.4 10^3/uL (4.0-10.0)
[2019-10-18 18:10] LABS: BLOOD UREA NITROGEN 13 MG/DL (7-18); CALCIUM LEVEL 10.3 MG/DL (8.8-10.2); CARBON DIOXIDE LEVEL 34 MEQ/L (21-32); CHLORIDE LEVEL 106 MEQ/L (98-107); CREATININE FOR GFR 0.79 MG/DL (0.55-1.30); GLOMERULAR FILTRATION RATE > 60.0 (>45); GLUCOSE, FASTING 92 MG/DL (70-100); POTASSIUM SERUM 4.2 MEQ/L (3.5-5.1); SODIUM LEVEL 143 MEQ/L (136-145)
[2019-10-18 19:16] VITALS: BP 130/71
== END 2019-10-18 19:38 | disposition home or self-care (01) ==
LOC: M ED 16:16
DX: G31.83 Neurocognitive disorder with Lewy bodies (principal); F17.210 Nicotine dependence, cigarettes, uncomplicated

== ENCOUNTER → 2020-07-06 | Outpatient (REF) ==
[~2020-07-06] MED LIST changes: +NITR100C2 PO; -RIVA6CAP; +RIVA6CAP17
[2020-08-23 22:17] LABS: APPEARANCE, URINE MANUAL CLOUDY (CLEAR); BILIRUBIN, URINE MANUAL NEGATIVE (NEGATIVE); BLOOD URINE MANUAL TRACE (NEGATIVE); COLOR, URINE MANUAL YELLOW (YELLOW); GLUCOSE, URINE (UA) MANUAL 1+(100 MG/DL) mg/dL (NEGATIVE); KETONE, URINE MANUAL NEGATIVE (NEGATIVE); LEUKOCYTE ESTERASE, URINE MAN NEGATIVE (NEGATIVE); NITRITE, URINE MANUAL NEGATIVE (NEGATIVE); PROTEIN, URINE MANUAL NEGATIVE (NEGATIVE); SPECIFIC GRAVITY,URINE MANUAL 1.025 (1.002-1.035); SQUAMOUS EPITHELIAL CELL URINE LARGE AMOUNT /hpf (SMALL AMT); UROBILINOGEN, URINE MANUAL NORMAL (NORMAL); WBC, URINE NONE SEEN /hpf (0-3)
[2020-08-23 22:18] LABS: BACTERIA, URINE SMALL AMOUNT; HYALINE CAST, URINE NONE SEEN /lpf (0-1)
== END ==
LOC: M LAB REF 09:38
PROVIDERS: ATTEND Family Medicine
DX: Z00.00 Encounter for general adult medical examination without abnormal findings (principal)